=== PATIENT | male | born 1960 | race Caucasian/White ===

== ENCOUNTER 2019-08-30 13:25 | Emergency (ER) | payer SELFPAY ==
[~2019-08-30] VITALS: Ht 162.6 cm; Wt 82.2 kg
[2019-08-30 13:33] VITALS: BP 152/124
--- NOTE | 2019-08-30 13:57 | NUR ---
PT TAKEN TO BED 5.
[2019-08-30 14:33] VITALS: BP 154/111
--- NOTE | 2019-08-30 14:33 | NUR ---
DR ANDERSON SPOKE WITH PT, INSTRUCTED FOR PT TO FOLLOW-UP AT [facility] ON Sunday. PT IS AOX4, SPO2 97% ON RA, RR 28 TACHYPNIC BUT NOT LABORED, LUNG SOUNDS CLEAR, AFEBRILE. PER DR ANDERSON, OK FOR DISCHARGE. PT VERBALIZED UNDERSTANDING TO FOLLOW UP.
--- NOTE | 2019-08-30 14:33 | NUR ---
BIB SELF C/O SOB + FATIGUE/WEAKNESS SECONDARY TO ASCITES. LUNG SOUNDS CLEAR VIKY UPPER LOBES, DIMINSHED VIKY LOWER LOBES. NO ACCESSORY MUSCLE USE NOTED. SAT 97% RA. BOWEL SOUNDS ACTIVE. NO PAIN REPORTED. HX: CIRRHOSIS/ASCITES, LAST PARACENTESIS WAS 1 MONTH AGO
--- NOTE | 2019-08-30 14:34 | NUR ---
Patient discharged with v/s stable. Written and verbal after care instructions given and explained. Patient alert, oriented and verbalized understanding of instructions. Ambulatory with steady gait. All questions addressed prior to discharge. ID band removed. Patient advised to follow up with PMD. Rx of VALIUM given. Patient educated on indication of medication including possible reaction and side effects. Opportunity to ask questions provided and answered.
== END 2019-08-30 14:34 | disposition home or self-care (01) ==
LOC: MED 13:25
DX: R18.8 Other ascites (principal); K76.9 Liver disease, unspecified
CPT/HCPCS: 99283